=== PATIENT | female | born 1970 | race Caucasian/White ===

== ENCOUNTER 2016-11-22 09:49 | Emergency (ER) ==
[2016-11-22 10:32] LABS: BASO% 0.2 % (0.0-0.8); EOS# 0.08 X1000 (0.0-0.7); EOS% 1.6 % (0.0-10.0); HEMATOCRIT 38.5 % (37.0-47.0); HEMOGLOBIN 12.4 g/dL (12.0-16.0); IMM GRAN# 0.02 X1000 (0.0-0.04); IMM GRAN% 0.4 % (0.0-0.5); LYMPH# 0.88 X1000 (1.2-3.4); LYMPH% 17.4 % (20.5-51.1); MANUAL DIFF NEEDED? NO; MCH 26.6 PG (27-31); MCHC 32.2 g/dL (33-37); MCV 82.4 FL (81-99); MONO# 0.41 X1000 (0.11-0.59); MONO% 8.1 % (1.7-9.3); MPV 9.9 FL (7.4-10.4); NEUT% 72.3 % (42.2-75.2); PLT 319 X1000 (130-400); RBC 4.67 XMIL (4.2-5.4)
[2016-11-22] MEDS ORDERED: NS 1,000 ML IV ONE ×2 (10:46→15:33)
[2016-11-22] MEDS ORDERED: BENTYL IM ONE (10:46)
[2016-11-22] MEDS ORDERED: ZOFRAN IV ONE (10:46)
--- NOTE | 2016-11-22 10:49 | PROVIDER DOCUMENTATION ---
HPI-Abdominal Pain/GI Problem - General Chief Complaint: Abdominal Pain Stated Complaint: ABD PAIN/DIARRHEA Time Seen by Provider: 11/22/16 10:38 Source: patient Allergies/Adverse Reactions: Patient Allergies Allergy/AdvReac Type Severity Reaction Status Date / Time No Known Allergies Allergy Verified 11/22/16 14:20 Home Medications: Home Medication List Medication Instructions Recorded Confirmed Last Taken Type Butalb/Acetaminophen/Caffeine 1 each PO Q4-6H PRN PRN 11/22/16 11/22/16 04:30 History [Qirshc-Ghoxikuj-Qtbt 50-325-40] Ciprofloxacin HCl [Cipro] 500 mg PO BID #20 tablet 11/22/16 Unknown Rx Diphenoxylate/Atropine [Lomotil] 1 each PO 4XDAY PRN PRN 11/22/16 11/22/1611/22 04:30 History Levothyroxine [Synthroid] 112 microgm PO DAILY 11/22/16 11/22/16 11/22/16 History Metronidazole [Flagyl] 500 mg PO TID #15 tablet 11/22/16 Unknown Rx Ondansetron HCl [Zofran] 4 mg PO 4XDAY 11/22/16 11/22/16 11/22/16 05:30 History - History of Present Illness-ABD Abdominal Pain Onset Location: reports: generalized abdomen Pain Radiation: reports: no radiation Quality of Pain: reports: cramping Severity in ED: reports: mild Onset/Duration: reports: 3 days ago Timing: reports: still present Activities at Onset: reports: none Exposure to sick contacts?: Yes Modifying Factors: improves with: nothing Associated Symptoms: reports: nausea, vomiting Last BM: this morning Dark Stools Present?: reports: none noticed Rectal Bleeding: reports: none Rectal Pain: reports: none Bruising or Bleeding Gums?: No Similar Symptoms Previously?: No Recently seen or treated by another doctor?: Yes Review of Systems - Adult - REVIEW OF SYSTEMS - ADULT Constitutional: reports: no symptoms reported Eyes: reports: no symptoms reported Ears, Nose, Mouth & Throat: reports: no symptoms reported Cardiovascular: reports: no symptoms reported Respiratory: reports: no symptoms reported Gastrointestinal: reports: see HPI Genitourinary: reports: no symptoms reported Musculoskeletal: reports: no symptoms reported Integumentary: reports: no symptoms reported Neurological: reports: no symptoms reported Psychiatric: reports: no symptoms reported Endocrine: reports: no symptoms reported Hematologic/Lymphatic: reports: no symptoms reported Allergic/Immunologic: reports: no symptoms reported All Other Systems: Reviewed and Negative Past History - Adult - PAST MEDICAL HISTORY-ADULT Review of Records: reports: Old Records Reviewed, Nursing Assessment Review, Medications Reviewed, Social history reviewed & non-contributory. Major Childhood Illnesses: reports: denies history Cardiovascular: reports: denies history Respiratory: reports: denies history Gastrointestinal: reports: denies history Obstetrical/Gynecological: reports: denies history Genitourinary: reports: denies history Musculoskeletal: reports: denies history Neurological: reports: denies history Endocrine/Immune: reports: denies history Other Conditions: reports: denies history - FAMILY HISTORY Family History: reviewed, not pertinent Physical Exam-General - PHYSICAL EXAM-ADULT Initial Vital Signs Reviewed: Yes - CONSTITUTIONAL General Appearance: appears well, alert, no apparent distress - EYES Eyes: PERRL/EOMI, pink conjunctivae, fundi clear, no AV nicking - HEAD, EARS, NOSE, MOUTH & THROAT HENMT: normocephalic/atraumatic, moist mucous membranes, normal ENT inspection, TMs normal, pharynx normal - NECK Neck: non-tender, full range of motion - RESPIRATORY Respiratory: chest non-tender, lungs clear, normal breath sounds, no pleuratic chest pain, no respiratory distress, no accessory muscle use - CARDIOVASCULAR Cardiovascular: normal peripheral pulses, regular rate, rhythm, no edema, no gallop, no JVD, no murmur - GASTROINTESTINAL (ABDOMEN) Abdominal Exam: normal bowel sounds, tenderness (mild diffuse). 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, grossly normal, no motor/sensory deficits - PSYCHIATRIC Psych/Mental Status: normal mood/affect, normal thought content Progress - PLAN OF CARE/RESULTS Progress/Plan/Lab Results: Laboratory Tests 11/22/16 11/22/16 11/22/16 10:00 10:00 14:16 WBC 5.06 RBC 4.67 Hgb 12.4 Hct 38.5 MCV 82.4 MCH 26.6 L MCHC 32.2 L RDW Std Deviation 15.2 H Plt Count 319 MPV 9.9 Immature Gran % (Auto) 0.4 Neut % (Auto) 72.3 Lymph % (Auto) 17.4 L Haakon % (Auto) 8.1 Eos % (Auto) 1.6 Baso % (Auto) 0.2 Immature Gran # (Auto) 0.02 Neut # (Auto) 3.66 Lymph # (Auto) 0.88 L Haakon # (Auto) 0.41 Eos # (Auto) 0.08 Baso # (Auto) 0.01 Sodium 133 L Potassium 3.2 L Chloride 92 L Carbon Dioxide 24 L Anion Gap 17 BUN 11 Creatinine 1.3 H Estimated GFR/1.73 m2 44 BUN/Creatinine Ratio 8 Glucose 111 H Calculated Osmolality 266 Calcium 9.6 Total Bilirubin 0.42 AST 14 ALT 10 Alkaline Phosphatase 72 Total Protein 7.6 Albumin 4.1 Globulin 3.5 Albumin/Globulin Ratio 1.2 Lipase 9 L Urine Source CLEAN CATCH Urine Color YELLOW Urine Turbidity CLEAR Urine pH 6.0 Ur Specific [place] 1.019 Urine Protein 100 A Ur Glucose (Stick) NEGATIVE Ur Ketones (Stick) NEGATIVE Urine Blood MODERATE A Urine Nitrite NEGATIVE Urine Bilirubin NEGATIVE Urobilinogen Dipstick NORMAL Urine Leukocytes NEGATIVE Urine WBC (Auto) <10 Urine RBC (Auto) 20-40 A U Epithel Cells (Auto) <10 Urine Bacteria (Auto) NEGATIVE Orders Category Date Time Status ED: Urine Bedside ORDERED Care 11/22/16 10:03 Active Saline Loc NOW Care 11/22/16 10:03 Active ABDOMEN/PELVIS W/O CONTRAST [CT] Stat Exams 11/22/16 15:33 Taken C DIFF TOXIN [STOOL] Stat Lab 11/22/16 16:43 Uncollected CBC WITH ELECTRONIC DIFF [HEME] Stat Lab 11/22/16 10:00 Completed COMPREHENSIVE METABOLIC PANEL [CHEM] Stat Lab 11/22/16 10:00 Completed LIPASE [CHEM] Stat Lab 11/22/16 10:00 Completed STOOL CULTURE [RM] Stat Lab 11/22/16 16:43 Uncollected URINALYSIS W/POSS RFLX CULT [URINALYSIS] Stat Lab 11/22/16 14:16 Completed WBC STOOL [STOOL] Stat Lab 11/22/16 16:43 Uncollected 0.9% Sodium Chloride Inj [Ns] 1,000 ml Med 11/22/16 10:46 Discontinued IV 999 mls/hr 0.9% Sodium Chloride Inj [Ns] 1,000 ml Med 11/22/16 15:33 Discontinued IV 999 mls/hr Acetaminophen [Tylenol] Med 11/22/16 16:19 Discontinued 650 mg PO NOW ONE Dicyclomine [Bentyl] Med 11/22/16 10:46 Discontinued 20 mg IM NOW ONE Hydromorphone [Dilaudid] Med 11/22/16 15:33 Discontinued 1 mg IV NOW ONE Metronidazole 500 mg/Ns [Flagyl 500 mg/Ns] 100 ml Med 11/22/16 16:41 Active IV NOW Ondansetron [Zofran] Med 11/22/16 10:46 Discontinued 4 mg IV NOW ONE Piperacil/Tazobact 2.25 gm/Ns [Zosyn 2.25 gm/Ns] 50 ml Med 11/22/16 16:41 Active IV NOW Potassium Chloride 20% Liquid Med 11/22/16 12:41 Discontinued 40 meq PO NOW ONE Vital Signs Temp Pulse Resp BP Pulse Ox 11/22/16 16:19 100.8 F H 11/22/16 09:53 98.5 F 97 H 18 142/93 100 No Known Allergies Allergy (Verified 11/22/16 14:20) Butalb/Acetaminophen/Caffeine [Fqofvq-Qbjnhrzu-Hgan 50-325-40] 1 each PO Q4-6H PRN PRN 11/22/16 Diphenoxylate/Atropine [Lomotil] 1 each PO 4XDAY PRN PRN 11/22/16 Levothyroxine [Synthroid] 112 microgm PO DAILY 11/22/16 Ondansetron HCl [Zofran] 4 mg PO 4XDAY 11/22/16 Laboratory 11/22/16 11/22/16 11/22/16 14:16 10:00 10:00 WBC 5.06 RBC 4.67 Hgb 12.4 Hct 38.5 MCV 82.4 MCH 26.6 L MCHC 32.2 L RDW Std Deviation 15.2 H Plt Count 319 MPV 9.9 Immature Gran % (Auto) 0.4 Neut % (Auto) 72.3 Lymph % (Auto) 17.4 L Haakon % (Auto) 8.1 Eos % (Auto) 1.6 Baso % (Auto) 0.2 Immature Gran # (Auto) 0.02 Neut # (Auto) 3.66 Lymph # (Auto) 0.88 L Haakon # (Auto) 0.41 Eos # (Auto) 0.08 Baso # (Auto) 0.01 Sodium 133 L Potassium 3.2 L Chloride 92 L Carbon Dioxide 24 L Anion Gap 17 BUN 11 Creatinine 1.3 H Estimated GFR/1.73 m2 44 BUN/Creatinine Ratio 8 Glucose 111 H Calculated Osmolality 266 Calcium 9.6 Total Bilirubin 0.42 AST 14 ALT 10 Alkaline Phosphatase 72 Total Protein 7.6 Albumin 4.1 Globulin 3.5 Albumin/Globulin Ratio 1.2 Lipase 9 L Urine Source CLEAN CATCH Urine Color YELLOW Urine Turbidity CLEAR Urine pH 6.0 Ur Specific [place] 1.019 Urine Protein 100 A Ur Glucose (Stick) NEGATIVE Ur Ketones (Stick) NEGATIVE Urine Blood MODERATE A Urine Nitrite NEGATIVE Urine Bilirubin NEGATIVE Urobilinogen Dipstick NORMAL Urine Leukocytes NEGATIVE Urine WBC (Auto) <10 Urine RBC (Auto) 20-40 A U Epithel Cells (Auto) <10 Urine Bacteria (Auto) NEGATIVE - CT/MRI 1 CT Study: Abdomen Impression: See EMR Report - CONSULTS/PCP/HOSPITALIST Notification #2 Consult: Dr Osborn Time Discussed: 16:45 Consult Disposition: Will see in ED (recommended IV ABX and stool tests and d/c on cipro and flagyl to follow up as outpt) Departure - Departure Time of Disposition Order: 16:46 DIAGNOSIS: Enterocolitis Abdominal pain Qualifiers: Abdominal location: right lower quadrant Qualified Code(s): R10.31 - Right lower quadrant pain Nausea & vomiting Qualifiers: Vomiting type: unspecified Vomiting Intractability: unspecified Qualified Code( s): R11.2 - Nausea with vomiting, unspecified Disposition: HOME 01 Certified Medical Emergency: Emergent Condition: Fair Prescriptions: Ciprofloxacin HCl [Cipro] 500 mg PO BID #20 tablet Metronidazole [Flagyl] 500 mg PO TID #15 tablet Referrals: Andrew Concepcion MD [Primary Care Provider] - Tk Osborn MD [STAFF PHYSICIAN] -
[2016-11-22 10:51] LABS: ALBUMIN 4.1 g/dL (3.5-5.0); CALCIUM 9.6 mg/dL (8.8-10.2); POTASSIUM 3.2 mmol/L (3.5-5.1); TOTAL BILIRUBIN 0.42 mg/dL (0.20-1.00); TOTAL PROTEIN 7.6 g/dL (6.3-8.3)
[2016-11-22] MEDS ORDERED: POTASSIUM CHLORIDE 20% LIQUID PO ONE (12:41)
[2016-11-22 14:26] LABS: URINE CULTURE NEEDED? NO; URINE MICRO REVIEW NEEDED? NO; URINE SOURCE CLEAN CATCH
[2016-11-22 14:32] LABS: BILIRUBIN URINE NEGATIVE (NEGATIVE); BLOOD URINE MODERATE (NEGATIVE); COLOR YELLOW; GLUCOSE URINE NEGATIVE (NEGATIVE); LEUKOCYTES URINE NEGATIVE (NEGATIVE); NITRITE URINE NEGATIVE (NEGATIVE); PROTEIN URINE 100 mg/dL (NEGATIVE); SP GRAVITY URINE 1.019; TURBIDITY URINE CLEAR (CLEAR); UR EPITHELIAL CELLS <10 /HPF (<10); URINE BACTERIA NEGATIVE /HPF; URINE RBC 20-40 /HPF (<10); URINE WBC <10 /HPF (<10); UROBILINOGEN URINE NORMAL (NORMAL)
[2016-11-22] MEDS ORDERED: DILAUDID IV ONE (15:33)
[2016-11-22] MEDS ORDERED: TYLENOL PO ONE (16:19)
[2016-11-22] MEDS ORDERED: FLAGYL 500 MG/NS 100 ML IV ONE (16:41)
[2016-11-22] MEDS ORDERED: ZOSYN 2.25 GM/NS 50 ML IV ONE (16:41)
--- NOTE | 2016-11-22 17:12 | Diag Imaging Result Document ---
PROCEDURE NAME: ABDOMEN/PELVIS W/O CONTRAST - 11/22/2016 CT ABDOMEN AND PELVIS WITHOUT CONTRAST: FINDINGS: No contrast administered per request of the referring provider. A dose reduction protocol was used. No comparison exam. The visualized lung bases appear clear. There are no substantial abnormalities of the liver, spleen, adrenal glands, or pancreas identified. The gallbladder is mildly distended. There are no calcified gallstones or pericholecystic inflammation identified. There is no evidence of renal stone or hydronephrosis. There is wall thickening along the terminal ileum. There is wall thickening along the right colon from the cecum to the proximal transverse colon. There is haziness of fat around the terminal ileum and right colon. There is retained fluid in much of the small bowel and colon. These findings suggest enterocolitis, particularly prominent at the terminal ileum and right colon. There is no abscess identified. There is no free air identified. There is a small amount of free fluid. There is mild mesenteric adenopathy, primarily at the right lower quadrant. The appendix has air in the lumen and does not appear inflamed. IMPRESSION: 1. Enterocolitis, most substantial along the terminal ileum and right colon. 2. No abscess identified. No free air. There is a small amount of free fluid. 3. No indication of appendicitis. 4. Mild mesenteric adenopathy at right lower quadrant.
[2016-11-22 19:10] VITALS: BP 148/90
--- NOTE | 2016-11-22 21:30 | CONSULTATION ---
DATE OF CONSULTATION: 11/22/2016 HISTORY OF PRESENT ILLNESS: This is a 46-year-old female who is reasonably healthy who presents with approximately 3-day history of diarrhea and mild right abdominal pain with subjective fevers. She denies any vomiting. No blood in her stools. Prior to this she reports normal bowel movements. No change in her bowel habits. No weight loss. 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 Denies any ingestion of undercooked meats and no recent antibiotic courses. She has never had a colonoscopy. MEDICAL HISTORY: Significant for hypothyroidism. SURGICAL HISTORY: She has had tubal ligation laparoscopically. SOCIAL HISTORY: Smokes, occasional alcohol. 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 FAMILY HISTORY: She has hypertension, coronary disease, sister who had thyroid cancer a young age, an aunt with breast cancer. REVIEW OF SYSTEMS: Ten point negative what was mentioned in HPI. PHYSICAL EXAM: T-max emergency department 100.8, pulse 97, blood pressure 142/93, oxygen saturation 100% on room air.General: She is alert in no acute distress. HEENT: No scleral icterus. Cardiovascular: Normal rate, regular rhythm. Pulmonary: No increased work of breathing. Abdomen: Soft, nondistended. There is some mild tenderness in the right abdomen to deep palpation but no focal peritonitis or rebound. She has tubal ligation incision at her belly button. It is well healed. I do not detect any ventral hernias. Integument: Otherwise warm, dry without jaundice. LABORATORY VALUES: White count normal at 5, hematocrit 35, platelets are 319,000,. Creatinine is 1.3, sodium is 133, potassium 3.2, chloride 92, bicarb 24, LFTs are normal. Lipase is normal at 9. Urinalysis shows some moderate blood but otherwise is negative. CT scan without IV contrast shows a normal air-filled appendix with some stranding and lymphadenopathy around the right colon but no significant colon wall thickening suggestive of enteral colitis. ASSESSMENT/PLAN: This 46-year-old white female with some diarrhea that is nonbloody and right- sided abdominal pain that is mild with no concerning findings on her abdominal exam. Laboratory values are overall unremarkable with a normal white count. CT scan suggestive enteral colitis, suspect a viral etiology to this. It is possible that she could have some bacterial component. PLAN: The ER makes plans to discharge her home. I agree with this. I have given my information with short interval follow up in my office in next 48 hours. I have asked ER to give her a dose of Zosyn and Flagyl and obtain stool cultures and C. difficile prior to her discharge although I suspect this would be low yield and most likely is that she has a contracted a viral illness from exposure to school-aged children. However I have also asked for a 10-day course Marlena Bradley to treat her for possible focal colitis of the right colon as well. She will ultimately need after this episode resolves a colonoscopy to rule out any neoplasm or inflammatory process is driving this although she is not really the demographic for inflammatory bowel disease but will need to rule this out. If her condition worsens I have encouraged her to return to emergency department soon and otherwise to keep her followup Thursday or Thursday this week in my office so we can ensure she is improving. I have encouraged her to stay hydrated and stay on a bland soft if not liquid diet for the next couple days until she continues to improve.
== END 2016-11-22 19:09 | disposition home or self-care (01) ==
LOC: ED 09:49
DX: K52.9 Noninfective gastroenteritis and colitis, unspecified (principal); R10.31 Right lower quadrant pain; R11.2 Nausea with vomiting, unspecified; R10.84 Generalized abdominal pain; R19.7 Diarrhea, unspecified; R10.819 Abdominal tenderness, unspecified site; Z79.899 Other long term (current) drug therapy
CPT/HCPCS: 36415; 74176; 80053; 81001; 81025; 83690; 85025; 87045; 87046; 87324; 89055; 96365; 96366; 96368; 96372; 96375; J0500; J1170; J2405; J2543; J7030; S0030